=== PATIENT | female | born 1995 | race Caucasian/White ===

== ENCOUNTER 2023-09-01 08:22 | Inpatient (IN) | payer OTHER ==
[~2023-09-01] VITALS: Ht 157.5 cm; Wt 72.1 kg
[2023-09-01] MEDS ORDERED: MISOPROSTOL 25 MCG/4 ML GEL.W.APPL ONE (09:02)
[2023-09-01] MEDS ORDERED: MISOPROSTOL 25 MCG/4 ML GEL.W.APPL VAG STA ×2 (09:09→13:22)
[2023-09-01 09:23] LABS: URINE APPEARANCE Cloudy; URINE BILIRRUBIN Negative (NEGATIVE); URINE BLOOD Negative; URINE COLOR Yellow; URINE GLUCOSE Negative (NEGATIVE); URINE LEUKOCYTE Large; URINE NITRATE Negative; URINE PROTEIN 30 (NEGATIVE)
[2023-09-01 09:26] LABS: URINE BACTERIA 9317.6 uL (0.0-1933); URINE EPITHELIAL CELLS 130.4 uL (0.0-38.8); URINE RBC 35.3 uL (0.0-20.8); URINE WBC 503.8 uL (0.0-23.2)
[2023-09-01 09:32] LABS: HEMATOCRIT 35.8 % (36.0-45.00); HEMOGLOBIN 12.4 g/dL (12.0-15.00); MEAN CELL VOLUME 89.7 fL (80.00-100.00); MEAN CORPUSCULAR HGB CONC 34.5 g/dl (32.0-36.0); PLATELET COUNT 311 K/uL (150-450); RED BLOOD COUNT 3.99 M/uL (4.00-6.00); RED CELL DISTRIBUTION WIDTH 13.5 % (11.5-14.5)
[2023-09-01] MEDS ORDERED: PRENATAL + DHA1 EAC1 PO (09:44)
[2023-09-01 10:07] LABS: URINE YEAST FEW /hpf
[2023-09-01 10:13] LABS: INR < 0.93; PARTIAL THROMBOPLASTIN TIME 30.5 SECONDS (22.0-34.0); PROTHROMBIN TIME 9.8 SECONDS (9.0-11.5)
[2023-09-01 10:23] LABS: ALBUMIN 2.8 gm/dL (3.4-5.0); BILIRUBIN TOTAL 0.4 mg/dL (0.3-1.2); CALCIUM 8.7 mg/dL (8.5-10.1); CREATININE SERUM 0.5 mg/dL (0.55-1.02); GLOBULINA 3.2 G/DL (2.4-3.5); POTASSIUM 4.07 mEq/L (3.5-5.1)
[2023-09-02] MEDS ORDERED: ERYTHROMYCIN BASE 1 GM TUBE OP ONE (06:33)
[2023-09-02] MEDS ORDERED: CHLORHEXIDINE GLUCONATE 120 ML BOTTLE TOP ONE (06:33)
[2023-09-02] MEDS ORDERED: OXYTOCIN 20 UNITS/1000ML RL PIGGYBAG IV ONE ×2 (06:33→10:32)
[2023-09-02] MEDS ORDERED: OXYTOCIN 500 ML IV SCH (08:00)
[2023-09-02] MEDS ORDERED: IBUprofen 400 MG TABLET PO PRN (09:45)
[2023-09-02] MEDS ORDERED: LIDOCAINE HCL 1% 200MG/20ML VIAL IJ SCH (10:15)
[2023-09-02] MEDS ORDERED: ERYTHROMYCIN BASE 1 GM TUBE OP SCH (10:15)
[2023-09-02] MEDS ORDERED: OXYTOCIN 10 UNITS/ML VIAL IM STA (10:15)
[2023-09-02] MEDS ORDERED: CHLORHEXIDINE GLUCONATE 120 ML BOTTLE TP SCH (10:15)
[2023-09-02 12:17] LABS: ABG PH 7.273 (7.35-7.45); ABG PO2 21.7 mmHg (80-100); ABG pCO2 51.8 mmHg (35-45); BICARBONATE 23.4 mmol/l (23-25); SaO2 27.5 %; o2 21 %
[2023-09-02 13:38] LABS: HEMATOCRIT 38.9 % (36.0-45.00); HEMOGLOBIN 12.8 g/dL (12.0-15.00); MEAN CELL VOLUME 88.3 fL (80.00-100.00); MEAN CORPUSCULAR HEMOGLOBIN 29.1 pg (27.00-32.0); PLATELET COUNT 320 K/uL (150-450); RED BLOOD COUNT 4.41 M/uL (4.00-6.00); RED CELL DISTRIBUTION WIDTH 13.7 % (11.5-14.5)
== END 2023-09-04 13:55 | disposition home or self-care (01) | DRG 807 ==
LOC: LDR 08:22 → OB/GYN 09-02 10:35
PROVIDERS: ADMIT Obstetrics & Gynecology; ATTEND Obstetrics & Gynecology
PROC: 3E0P7VZ Introduction of Hormone into Female Reproductive, Via Natural or Artificial Opening (ICD-10-PCS; 2023-09-01)
PROC: 4A1HXCZ Monitoring of Products of Conception, Cardiac Rate, External Approach (ICD-10-PCS; 2023-09-01)
PROC: 10E0XZZ Delivery of Products of Conception, External Approach (ICD-10-PCS; principal; 2023-09-02)
PROC: 0KQM0ZZ Repair Perineum Muscle, Open Approach (ICD-10-PCS; 2023-09-02)
PROC: 3E033VJ Introduction of Other Hormone into Peripheral Vein, Percutaneous Approach (ICD-10-PCS; 2023-09-02)
DX: O70.1 Second degree perineal laceration during delivery (principal); Z37.0 Single live birth; Z3A.40 40 weeks gestation of pregnancy; Z20.822 Contact with and (suspected) exposure to COVID-19